=== PATIENT | male | born 1960 | race Caucasian/White ===

== ENCOUNTER 2018-03-08 07:54 | Emergency (ER) | payer OTHER ==
--- NOTE | 2018-03-08 08:13 | UC ---
Neck Pain HPI - HPI Summary HPI Summary: Patient presents with a past medical history of hypercholesterolemia. 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 He states she then tried to do stretching exercises and feels he may have overdone it. He then felt worse with increased pain , and left sided stiffness. He then went to a chiropractor who adjusted his neck and he has not had much relief. He continues to complain of non-radiating left sided neck pain that is worse with movement and improves slightly as rest. He denies any numbness, weakness, or pain radiating down either arm. He states the pain is aching and more sharp with any movement. - History of Current Complaint Stated Complaint: NECK PAIN Time Seen by Provider: 03/08/18 07:58 Hx Obtained From: Patient Onset/Duration Of Injury/Symptoms: Days Mechanism Of Injury: No Known Trauma Timing: Constant Onset/Duration: Gradual Onset, Lasting Days, Worse Since - yesterday 03/08/18. Character: Aching, Stiff, Spasmotic, Throbbing Aggravating Factors: Movement Alleviating Factors: Nothing Associated Signs & Symptoms: Positive: Negative - Risk Factors Meningitis Risk Factors: Negative PMH/Surg Hx/FS Hx/Imm Hx Previously Healthy: Yes Endocrine History: Dyslipidemia - Surgical History Surgical History: None - Family History Known Family History: Positive: Other - depression cancer - Social History Occupation: Employed Full-time Lives: With Family Substance Use Type: None Review Of Systems Constitutional: Positive: Negative Musculoskeletal: Positive: Decreased ROM, Myalgia Neurological: Positive: Negative All Other Systems Reviewed And Are Negative: Yes Physical Exam Triage Information Reviewed: Yes Appearance: Pain Distress Vital Signs Reviewed: Yes Eye Exam: Normal ENT Exam: Normal Neck: Positive: Other: - Cervical spine, vertebra in good aligment, without step -offs or deformities. No midline tenderness. Palpaple pain noted of left lateral musculature. ROM flexion and extenion of 10 degress. NO night or left lateral ROM. No cervical lympadenopathy. Neurological Exam: Normal Skin Exam: Normal Neck Pain Course/Dx - Course Course Of Treatment: Patient presents with 2-3 days worsening non-traumatic neck pain, which is reproducible. He remains neuro-vasc intact. He will be treated conservativly with flexeril 10 mg tid and needed and predniosone 20 mg bid x 7 days. He will continue to utilize heat/ice, gentla ROM exercises. If his symtpoms worsen, change or persist he was told to follow up with his PCP at that time, or return to the walk-in clinic for re-evaluation. He verbalzed understanding of and in agreement with the dishcarge plan. Discharge - Discharge Plan Prescriptions: predniSONE [Deltasone 20 MG TAB] 20 mg PO BID #14 tablet Referrals: Eduar Dumont MD [Primary Care Provider] -
[2018-03-08 08:15] VITALS: BP 129/77
== END 2018-03-08 08:26 | disposition home or self-care (01) ==
LOC: UCEAST 07:54
DX: M54.2 Cervicalgia (principal)
CPT/HCPCS: 99212; G0463

== ENCOUNTER 2018-08-03 07:59 | Emergency (ER) | payer OTHER ==
[2018-08-03 08:06] VITALS: BP 128/75
--- NOTE | 2018-08-03 08:56 | ED ---
Back Pain - HPI Summary HPI Summary: 58 yo white male b/o sudden right sided back pain, sudden while trying to clean off a frozen bird house off of the top of his car and pulled his back, worse with ambulation. Denies radiation or numbness/tingling - History of Current Complaint Chief Complaint: UCBackPain Stated Complaint: BACK PAIN Time Seen by Provider: 08/03/18 08:11 Hx Obtained From: Patient Onset/Duration: Sudden Onset Onset/Duration: Started Days Ago Timing: Constant Severity Initially: Moderate Severity Currently: Severe Pain Intensity: 9 - Allergies/Home Medications Allergies/Adverse Reactions: Allergies Allergy/AdvReac Type Severity Reaction Status Date / Time No Known Allergies Allergy Verified 08/03/18 08:06 Home Medications: Home Medications Rosuvastatin Calcium 1 tab PO DAILY 08/03/18 [History Confirmed 08/03/18] PMH/Surg Hx/FS Hx/Imm Hx Previously Healthy: Yes Endocrine/Hematology History: Denies: Hx Diabetes, Hx Thyroid Disease Cardiovascular History: Denies: Hx Hypertension Respiratory History: Denies: Hx Asthma, Hx Chronic Obstructive Pulmonary Disease (COPD) GI History: Denies: Hx Ulcer Neurological History: Comment Only: Other Neuro Impairments/Disorders - LOW BACK INJURY 10 YEARS AGO - Surgical History Surgery Procedure, Year, and Place: right knee surg x 2 Infectious Disease History: No Infectious Disease History: Denies: Hx Hepatitis, Hx Human Immunodeficiency Virus (HIV), Traveled Outside the [place] in Last 30 Days - Family History Known Family History: Positive: Other - depression cancer - Social History Alcohol Use: Occasionally Substance Use Type: Reports: None Smoking Status (MU): Never Smoked Tobacco Review of Systems Constitutional: Negative Eyes: Negative ENT: Negative Cardiovascular: Negative Respiratory: Negative Gastrointestinal: Negative Musculoskeletal: Other - see HPI Skin: Negative Neurological: Negative All Other Systems Reviewed And Are Negative: Yes Physical Exam Vital Signs On Initial Exam: Initial Vitals Temp Pulse Resp BP Pulse Ox 36.6 C 73 16 128/75 99 08/03/18 08:01 08/03/18 08:01 08/03/18 08:01 08/03/18 08:01 08/03/18 08:01 Vital Signs Reviewed: Yes Skin: Positive: Warm Head/Face: Positive: Normal Head/Face Inspection Eyes: Positive: Normal ENT: Positive: Normal ENT inspection Neck: Positive: Supple Respiratory/Lung Sounds: Positive: Clear to Auscultation Cardiovascular: Positive: Normal, RRR, S1, S2 Abdomen Description: Positive: Nontender Musculoskeletal: Positive: Limited @, Pain @ - right L4-5 paraspinal muscle tenderness without radiculopathy Neurological: Positive: Normal Psychiatric: Positive: Normal, Affect/Mood Appropriate Diagnostics - Vital Signs Vital Signs Temp Pulse Resp BP Pulse Ox 08/03/18 08:01 36.6 C 73 16 128/75 99 - Laboratory Lab Statement: Any lab studies that have been ordered have been reviewed, and results considered in the medical decision making process. Back Pain Course/Dx - Course Assessment/Plan: recurrent LBP, has serial imaging in the past, takes meds as directed - Diagnoses Provider Diagnoses: Lumbar paraspinal muscle spasm Discharge - Sign-Out/Discharge Documenting (check all that apply): Patient Departure All imaging exams completed and their final reports reviewed: No Studies - Discharge Plan Condition: Stable Disposition: HOME Prescriptions: Cyclobenzaprine TAB* [Flexeril 10 MG TAB*] 10 mg PO BEDTIME PRN 5 Days #5 tab PRN Reason: Pain Naproxen [Naprosyn 500 mg tab] 500 mg PO BID 10 Days #20 tablet Patient Education Materials: Muscle Spasm (ED) Referrals: Eduar Dmuont MD [Primary Care Provider] - Additional Instructions: as tolerated - Billing Disposition and Condition Condition: STABLE Disposition: Home
== END 2018-08-03 08:50 | disposition home or self-care (01) ==
LOC: UCEAST 07:59
DX: M62.830 Muscle spasm of back (principal)
CPT/HCPCS: 99212; G0463